=== PATIENT | female | born 1995 | race Caucasian/White ===

== ENCOUNTER 2025-01-16 10:56 | Outpatient (CLI) | payer OTHER, SELFPAY ==
[2025-01-19 07:45] LABS: HPV Source Cervix
[2025-01-23 10:20] LABS: Pap Test Digital Imaging Done
== END 2025-01-16 10:57 | disposition home or self-care (01) ==
PROVIDERS: Visit Provider Obstetrics & Gynecology
DX: Z11.51 Encounter for screening for human papillomavirus (HPV) (principal); Z12.4 Encounter for screening for malignant neoplasm of cervix
CPT/HCPCS: 87624; 87625; 88141; 88142; 88175